=== PATIENT | male | born 1960 | race Caucasian/White ===

== ENCOUNTER 2017-10-08 17:38 | Inpatient (IN) ==
--- NOTE | 2017-10-08 18:51 | XR ---
EXAM DATE: 10/08/2017 6:45 PM EDT AGE/SEX: 57 years / Male INDICATIONS: . Chest pain. CLINICAL DATA: This is the patient's initial encounter. Patient reports that signs and symptoms have been present for 1 week and indicates a pain score of 6/10. MEDICAL/SURGICAL HISTORY: Diabetes. None. COMPARISON: [facility] [place], CHEST SINGLE AP, 10/27/2014. [facility], XR CHEST PA AND LAT, 01/21/2012. . FINDINGS: PA and lateral views of the chest demonstrate the lungs to be symmetrically aerated without evidence of mass, infiltrate or effusion. The cardiomediastinal contours are unremarkable. Moderate degenerati ve changes in the thoracic spine, stable. CONCLUSION: No acute cardiopulmonary disease. Electronically signed by: Collin Marquez MD 10/08/2017 6:49 PM EDT
[2017-10-08] MEDS ORDERED: Morphine Inj 4 MG/ML Vial IV.PUSH ONE (20:45)
--- NOTE | 2017-10-08 20:49 | ED ---
HPI General Chief complaint: Chest Pain Stated complaint: chest pain Time Seen by Provider: 10/08/17 20:38 History of Present Illness HPI narrative: This is a 57-year-old male with history of coronary artery disease with previous OK, diabetes, hypertension, hyperlipidemia, presents by private vehicle complaining of chest pain. He reports that for the past week he has been having intermittent left-sided chest pain which she describes as a pressure. He reports that he had to go to work all week long and so he was putting off being seen for but ever since this morning the pain has been constant and this is what prompted evaluation. He reports that the pain seems to be worse with exertion such as when he walking. He reports that it feels like the time that he had an OK in 2015. He denies any associated symptoms breath, diaphoresis, nausea, vomiting, cough, congestion, abdominal pain, lower extremity edema. Symptoms are moderate. Took a baby aspirin this morning. Primary care physician Dr. Moses. No other complaints. Related Data Home Medications Medication Instructions Recorded Confirmed aspirin [Aspirin Low Dose] 81 mg PO DAILY 10/08/17 10/08/17 carvedilol 3.125 mg PO BID 10/08/17 10/08/17 glipizide 20 mg PO BID 10/08/17 10/08/17 levothyroxine 100 mcg PO DAILY 10/08/17 10/08/17 lisinopril 5 mg PO DAILY 10/08/17 10/08/17 lovastatin 40 mg PO DAILY 10/08/17 10/08/17 metformin 1,000 mg PO BID 10/08/17 10/08/17 pazopanib 400 mg PO DAILY 10/08/17 10/08/17 Allergies Allergy/AdvReac Type Severity Reaction Status Date / Time No Known Allergies Allergy Uncoded 10/27/14 23:47 Review of Systems ROS: all other systems reviewed are negative [facility] Medical History Medical History Diabetes (Acute) Heart attack (Acute) High cholesterol (Acute) Hypertension (Acute) Renal cancer (Acute) Thyroid disease (Acute) Surgical History Surgical History History of nephrectomy (Acute) History of surgical removal of meniscus of knee (Acute) Hx of appendectomy (Acute) Stented coronary artery (Acute) Social History Social History Substance History: No History of Abuse Second Hand Smoke Exposure: No Smoking Status: Never smoker How Often Do You Have a Drink Containing Alcohol: Monthly or less Recent Travel in [facility] within the Last 8 Weeks: No Recent Out of Country Travel within the Last 8 Weeks: No Exam Narrative Exam Narrative: GENERAL: This is a well-developed well-nourished male no acute distress SKIN: Warm and dry. HEAD: Atraumatic. Normocephalic. EYES: Pupils equal and round. No scleral icterus. No injection or drainage. ENT: No nasal bleeding or discharge. Mucous membranes pink and moist. NECK: Trachea midline. No JVD. CARDIOVASCULAR: Regular rate and rhythm. No murmur appreciated. RESPIRATORY: No accessory muscle use. Clear to auscultation. Breath sounds equal bilaterally. GASTROINTESTINAL: Abdomen soft, non-tender, nondistended. Hepatic and splenic margins not palpable. MUSCULOSKELETAL: No obvious deformities. No clubbing. No cyanosis. No edema. NEUROLOGICAL: Awake and alert. No obvious cranial nerve deficits. Motor grossly within normal limits. Normal speech. PSYCHIATRIC: Appropriate mood and affect; insight and judgment normal. Course Initial Documented Vital Signs Temperature 98.9 F 10/08/17 17:48 Pulse Rate 90 10/08/17 17:48 Respiratory Rate 18 10/08/17 17:48 Blood Pressure 158/89 H 10/08/17 17:48 Pulse Oximetry 96 10/08/17 17:48 Last Documented Vital Signs Temperature 98.9 F 10/08/17 17:48 Pulse Rate 73 10/08/17 21:11 Respiratory Rate 18 10/08/17 21:11 Blood Pressure 99/62 L 10/08/17 21:11 Pulse Oximetry 96 10/08/17 21:11 Medical Decision Making [facility] Narrative Medical decision making narrative: The patient was placed on ECG monitoring pulse oximetry. A 12 EKG was obtained in triage revealing sinus rhythm with Q waves in the inferior leads, ST depression v3-v5. Lab work, chest x-ray ordered. The patient took 81 mg of aspirin earlier today, additional 243 mg aspirin ordered. The patient was given sublingual nitroglycerin, morphine. The patient's pain resolved after the second dose of nitroglycerin. 500 mm normal saline bolus was administered. Lab work reviewed, troponin was slightly elevated at 0.06. 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 Quan, no heparin at this time, he will be happy to consult. Discussed with Dr. Winslow is agreeable with admission. Medical Screen Exam Complete: Yes Emergency Medical Condition: Yes Differential Diagnosis Differential Diagnosis: Angina, acute coronary syndrome, aortic dissection, pericarditis, myocarditis, pneumothorax, costochondritis Lab Data Result diagrams: 10/08/17 20:55 10/08/17 20:55 Lab Results 10/08/17 10/08/17 10/08/17 Range/Units 20:55 20:55 20:55 WBC 7.5 (4.0-11.0) th/mm3 RBC 4.83 (4.50-5.90) mil/mm3 Hgb 14.7 (13.0-17.0) gm/dL Hct 44.2 (39.0-51.0) % MCV 91.5 (80.0-100.0) fL MCH 30.4 (27.0-34.0) pg MCHC 33.2 (32.0-36.0) % RDW 15.5 (11.6-17.2) % Plt Count 262 (150-450) th/mm3 MPV 8.6 (7.0-11.0) fL Neut % (Auto) 58.7 (16.0-70.0) % Lymph % (Auto) 26.1 (9.0-44.0) % [place] % (Auto) 11.6 H (0.0-8.0) % Eos % (Auto) 3.3 (0.0-4.0) % Baso % (Auto) 0.3 (0.0-2.0) % Neut # (Auto) 4.4 (1.8-7.7) th/mm3 Lymph # (Auto) 1.9 (1.0-4.8) th/mm3 [place] # (Auto) 0.9 (0.0-0.9) th/mm3 Eos # (Auto) 0.2 (0.0-0.4) th/mm3 Baso # (Auto) 0.0 (0.0-0.2) th/mm3 WBC Differential . Differential Comment Auto diff final PT 9.4 L (9.8-11.6) sec INR 0.9 Ratio APTT 23.4 L (24.3-30.1) sec Sodium 139 (136-145) meq/L Potassium 4.7 (3.5-5.1) meq/L Chloride 104 (98-107) meq/L Carbon Dioxide 28.1 (21.0-32.0) meq/L Anion Gap 7 (5-15) meq/L BUN 20 H (7-18) mg/dL Creatinine 1.39 H (0.60-1.30) mg/dL Estimated GFR 53 L (>89) mL/min Random Glucose 101 (74-106) mg/dL Calcium 8.4 L (8.5-10.1) mg/dL Magnesium (1.5-2.5) mg/dL Total Creatine Kinase (39-308) U/L CK-MB (CK-2) (0.5-3.6) ng/mL Troponin I 0.06 H (0.02-0.05) ng/mL 10/08/17 Range/Units 20:55 WBC (4.0-11.0) th/mm3 RBC (4.50-5.90) mil/mm3 Hgb (13.0-17.0) gm/dL Hct (39.0-51.0) % MCV (80.0-100.0) fL MCH (27.0-34.0) pg MCHC (32.0-36.0) % RDW (11.6-17.2) % Plt Count (150-450) th/mm3 MPV (7.0-11.0) fL Neut % (Auto) (16.0-70.0) % Lymph % (Auto) (9.0-44.0) % [place] % (Auto) (0.0-8.0) % Eos % (Auto) (0.0-4.0) % Baso % (Auto) (0.0-2.0) % Neut # (Auto) (1.8-7.7) th/mm3 Lymph # (Auto) (1.0-4.8) th/mm3 [place] # (Auto) (0.0-0.9) th/mm3 Eos # (Auto) (0.0-0.4) th/mm3 Baso # (Auto) (0.0-0.2) th/mm3 WBC Differential Differential Comment PT (9.8-11.6) sec INR Ratio APTT (24.3-30.1) sec Sodium (136-145) meq/L Potassium (3.5-5.1) meq/L Chloride (98-107) meq/L Carbon Dioxide (21.0-32.0) meq/L Anion Gap (5-15) meq/L BUN (7-18) mg/dL Creatinine (0.60-1.30) mg/dL Estimated GFR (>89) mL/min Random Glucose (74-106) mg/dL Calcium (8.5-10.1) mg/dL Magnesium 2.0 (1.5-2.5) mg/dL Total Creatine Kinase 191 (39-308) U/L CK-MB (CK-2) 5.0 H (0.5-3.6) ng/mL Troponin I (0.02-0.05) ng/mL Imaging Data Radiologist's impression: Chest X-Ray 10/08/17 17:53 CONCLUSION: No acute cardiopulmonary disease. Discharge Plan Discharge Disposition Patient Disposition: 30 Still Patient Discharge Condition Condition: Stable Discharge Details Diagnosis: Elevated troponin, Chest pain Physicians Team ED Provider: Roberto Brenner ED Midlevel Provider: Johnny Barrett Primary Care Provider: Daniel Moses Rxs /Orders / Referrals /Forms Prescriptions: No Action glipizide 10 mg Tablet 20 mg PO BID RF: 0 lovastatin 40 mg Tablet 40 mg PO DAILY RF: 0 aspirin [Aspirin Low Dose] 81 mg Tablet,Delayed Release (Dr/Ec) 81 mg PO DAILY RF: 0 carvedilol 3.125 mg Tablet 3.125 mg PO BID RF: 0 levothyroxine 100 mcg Tablet 100 mcg PO DAILY RF: 0 metformin 1,000 mg Tablet 1,000 mg PO BID RF: 0 lisinopril 5 mg Tablet 5 mg PO DAILY RF: 0 pazopanib 200 mg Tablet 400 mg PO DAILY RF: 0 Discharge Instructions Patient Printed Instructions: Chest Pain (ED) Discharge Interventions Interventions: Vital Signs Last Done: 10/08/17 20:48 Status ED Status: With Doctor
[2017-10-08] MEDS ORDERED: Sodium Chlor 0.9% Inj 500 ML IV.SIG STA (21:13)
[2017-10-08 21:24] LABS: Baso % (Auto) 0.3 % (0.0-2.0); Eos # (Auto) 0.2 th/mm3 (0.0-0.4); Eos % (Auto) 3.3 % (0.0-4.0); Hematocrit 44.2 % (39.0-51.0); Hemoglobin 14.7 gm/dL (13.0-17.0); Lymph # (Auto) 1.9 th/mm3 (1.0-4.8); Lymph % (Auto) 26.1 % (9.0-44.0); Mean Corpuscular HGB Conc 33.2 % (32.0-36.0); Mean Corpuscular Hemoglobin 30.4 pg (27.0-34.0); Mean Corpuscular Volume 91.5 fL (80.0-100.0); Mean Platelet Volume 8.6 fL (7.0-11.0); Mono # (Auto) 0.9 th/mm3 (0.0-0.9); Mono % (Auto) 11.6 % (0.0-8.0); Neut # (Auto) 4.4 th/mm3 (1.8-7.7); Neut % (Auto) 58.7 % (16.0-70.0); Platelet Count 262 th/mm3 (150-450); Red Blood Count 4.83 mil/mm3 (4.50-5.90); Red Cell Distribution Width 15.5 % (11.6-17.2); White Blood Count 7.5 th/mm3 (4.0-11.0)
[2017-10-08 21:41] LABS: Calcium 8.4 mg/dL (8.5-10.1); Carbon Dioxide 28.1 meq/L (21.0-32.0); Potassium 4.7 meq/L (3.5-5.1)
[2017-10-08 21:44] LABS: Creatine Kinase 191 U/L (39-308)
[2017-10-08 21:45] LABS: Troponin I 0.06 ng/mL (0.02-0.05)
[2017-10-08 22:09] LABS: Activated Partial Thrombo Time 23.4 sec (24.3-30.1); INR 0.9 Ratio; Prothrombin Time 9.4 sec (9.8-11.6)
[2017-10-08] MEDS ORDERED: Heparin 10,000 UNITS/10 ML Vial (for IV use) IV.PUSH STA (22:38)
[2017-10-08] MEDS: Heparin Drip 25,000 UNIT/250 ML BAG IV.CONT PRN (23:01)
[2017-10-09] MEDS ORDERED: Morphine Sulfate Inj 2 MG/ML Vial IV.PUSH PRN (00:29)
[2017-10-09] MEDS ORDERED: Dextrose 50% in Water 50 ML Vial IV.PUSH PRN (00:35)
--- NOTE | 2017-10-09 00:38 | P.HP ---
History of Present Illness Service: [facility] Primary Care Physician: Daniel Moses MD History of Present Illness: 57-year-old male with past medical history significant for diabetes, coronary artery disease, hypertension, hyperlipidemia, stage IV renal cell cancer and hypothyroidism presents to the emergency department for evaluation of chest pain. The patient reports that his pain has been intermittent for the past week. He states it was worse yesterday and he described it as a nonradiating pressure in the center and left side of his chest. He endorses accompanying nausea, shortness of breath and worsening dyspnea on exertion. He denies any fever/chills. No lateralizing signs/symptoms. Review of Systems All other systems reviewed negative except as stated in HPI [facility] - History History Provided By: Patient, Family Member - Medical History Medical History: Medical History (Last Updated 10/08/17 @ 20:47 by Cristina Rosenthal) Diabetes Heart attack High cholesterol Hypertension Renal cancer Thyroid disease - Surgical History Surgical History: Surgical History (Last Updated 10/08/17 @ 20:47 by Cristina Rosenthal) History of nephrectomy History of surgical removal of meniscus of knee Hx of appendectomy Stented coronary artery - Family History Family History: Family History (Last Updated 10/09/17 @ 00:28 by Shelia Winslow MD) Other Diabetes mellitus - Tobacco History Second Hand Smoke Exposure: No Smoking Status: Never smoker - Alcohol History How Often Do You Have a Drink Containing Alcohol: Monthly or less - Substance Use History Substance History: No History of Abuse - Travel History Recent Travel in the [place] Within the Last 8 Weeks: No Recent Travel Out of the Country Within the Last 8 Weeks: No - Immunization History Tetanus Immunization: Unsure Hx Influenza Vaccine This Season: No Medications and Allergies Active Medications: Active Medications Aspirin (Ecotrin) 81 mg PO DAILY [facility] Carvedilol (Coreg) 3.125 mg PO BID [facility] Heparin Sodium/Dextrose (Heparin/D5w 25,000 U/250 Ml) 25,000 unit in 250 mls @ 0 mls/hr IV.CONT TITRATE PRN; Protocol PRN Reason: Per Protocol Last Titration: 10/08/17 23:05 Dose: Infused Lisinopril (Prinivil) 5 mg PO DAILY [facility] Nitroglycerin (Nitro-Bid 2% Oint) 0.5 inch TOPICAL Q6HR JS Last Admin: 10/08/17 23:00 Dose: 0.5 inch Sodium Chloride (Ns Flush) 2 ml IV.FLUSH UNSCH PRN PRN Reason: FLUSH AFTER USING IV ACCESS Allergies Allergy/AdvReac Type Severity Reaction Status Date / Time No Known Allergies Allergy Uncoded 10/27/14 23:47 Home Medications Medication Instructions Recorded Confirmed Type aspirin [Aspirin Low Dose] 81 mg PO DAILY 10/08/17 10/08/17 History carvedilol 3.125 mg PO BID 10/08/17 10/08/17 History glipizide 20 mg PO BID 10/08/17 10/08/17 History levothyroxine 100 mcg PO DAILY 10/08/17 10/08/17 History lisinopril 5 mg PO DAILY 10/08/17 10/08/17 History lovastatin 40 mg PO DAILY 10/08/17 10/08/17 History metformin 1,000 mg PO BID 10/08/17 10/08/17 History pazopanib 400 mg PO DAILY 10/08/17 10/08/17 History Exam Vital signs: Vital Signs 10/08/17 17:48 10/08/17 20:45 10/08/17 20:48 Temperature 98.9 F Pulse Rate 90 71 76 Respiratory Rate 18 20 Blood Pressure 158/89 H 177/90 H Pulse Oximetry 96 97 10/08/17 21:06 10/08/17 21:11 10/08/17 23:05 Temperature Pulse Rate 80 73 70 Respiratory Rate 16 18 16 Blood Pressure 126/69 99/62 L 146/79 H Pulse Oximetry 93 L 96 95 10/09/17 00:03 Temperature Pulse Rate 64 Respiratory Rate 16 Blood Pressure 149/79 H Pulse Oximetry 98 Intake & Output 10/08/17 10/08/17 10/09/17 06:59 18:59 06:59 Intake Total 750 / 750 Balance 750 / 750 Weight 97.522 kg Intake: IV 750 / 750 Heparin/D5W 25,000 U/250 mL 25, 250 / 250 000 unit In 250 ml @ Per Protocol IV.CONT TITRATE PRN Rx #:[id number] NS Inj 500 ML @ Wide Open IV. 500 / 500 SIG BOLUS STA Rx#:[id number] Narrative: Gen.: No acute distress Head: Normocephalic. Atraumatic. EENT: Pupils equal round and reactive to light. Nose without drainage. Airway intact. Throat without injection. Cardiovascular: Regular rate and rhythm. No murmurs, rubs or gallops. Respiratory: Lungs clear to auscultation bilaterally. No wheezes or rhonchi. Abdomen: Soft, nontender, nondistended. No peritoneal signs. Musculoskeletal: No gross deformities. No edema. Skin: No obvious rashes or erythema. Neuro: Sensory and motor grossly intact. Cranial nerves II through XII grossly intact. Results - Labs CBC & Chem 7: 10/08/17 20:55 10/08/17 20:55 Labs: Laboratory Results - last 24 hr 10/08/17 10/08/17 10/08/17 20:55 20:55 20:55 WBC 7.5 RBC 4.83 Hgb 14.7 Hct 44.2 MCV 91.5 MCH 30.4 MCHC 33.2 RDW 15.5 Plt Count 262 MPV 8.6 Neut % (Auto) 58.7 Lymph % (Auto) 26.1 [place] % (Auto) 11.6 H Eos % (Auto) 3.3 Baso % (Auto) 0.3 Neut # (Auto) 4.4 Lymph # (Auto) 1.9 [place] # (Auto) 0.9 Eos # (Auto) 0.2 Baso # (Auto) 0.0 WBC Differential . Differential Comment Auto diff final PT 9.4 L INR 0.9 APTT 23.4 L Sodium 139 Potassium 4.7 Chloride 104 Carbon Dioxide 28.1 Anion Gap 7 BUN 20 H Creatinine 1.39 H Estimated GFR 53 L Random Glucose 101 Calcium 8.4 L Magnesium Total Creatine Kinase CK-MB (CK-2) Troponin I 0.06 H 10/08/17 20:55 WBC RBC Hgb Hct MCV MCH MCHC RDW Plt Count MPV Neut % (Auto) Lymph % (Auto) [place] % (Auto) Eos % (Auto) Baso % (Auto) Neut # (Auto) Lymph # (Auto) [place] # (Auto) Eos # (Auto) Baso # (Auto) WBC Differential Differential Comment PT INR APTT Sodium Potassium Chloride Carbon Dioxide Anion Gap BUN Creatinine Estimated GFR Random Glucose Calcium Magnesium 2.0 Total Creatine Kinase 191 CK-MB (CK-2) 5.0 H Troponin I - Imaging Impressions Chest X-Ray 10/08/17 17:53 CONCLUSION: No acute cardiopulmonary disease. Caprini VTE Risk Assessment Caprini VTE Risk Assessment: Moderate/High Risk (score >= 2) Caprini Risk Assessment Model: Point Value = 1 Point Value = 2 Point Value = 3 Point Value = 5 Age 41-60 Minor surgery BMI > 25 kg/m2 Swollen legs Varicose veins or History of unexplained or recurrent spontaneous Oral contraceptives or hormone replacement Sepsis (< 1 month) Serious lung disease, including pneumonia (< 1 month) Abnormal pulmonary function Acute myocardial infarction Congestive heart failure (< 1 month) History of inflammatory bowel disease Medical patient at bed rest Age 61-74 Arthroscopic surgery Major open surgery (> 45 min) Laparoscopic surgery (> 45 min) Malignancy Confined to bed (> 72 hours) Immobilizing plaster cast Central venous access Age >= 75 History of VTE Family history of VTE Factor V Leiden Prothrombin [id number] Lupus anticoagulant Anticardiolipin antibodies Elevated serum homocysteine Heparin-induced thrombocytopenia Other congenital or acquired thrombophilia Stroke (< 1 month) Elective arthroplasty Hip, pelvis, or leg fracture Acute spinal cord injury (< 1 month) Prophylaxis Regimen: Total Risk Factor Score Risk Level Prophylaxis Regimen 0-1 Low Early ambulation 2 Moderate Order ONE of the following: *Sequential Compression Device (SCD) *Heparin 5000 units SQ BID 3-4 Higher Order ONE of the following medications: *Heparin 5000 units SQ TID *Enoxaparin/Lovenox 40 mg SQ daily (WT < 150 kg, CrCl > 30 mL/min) *Enoxaparin/Lovenox 30 mg SQ daily (WT < 150 kg, CrCl > 10-29 mL/min) *Enoxaparin/Lovenox 30 mg SQ BID (WT < 150 kg, CrCl > 30 mL/min) AND/OR *Sequential Compression Device (SCD) 5 or more Highest Order ONE of the following medications: *Heparin 5000 units SQ TID (Preferred with Epidurals) *Enoxaparin/Lovenox 40 mg SQ daily (WT < 150 kg, CrCl > 30 mL/min) *Enoxaparin/Lovenox 30 mg SQ daily (WT < 150 kg, CrCl > 10-29 mL/min) *Enoxaparin/Lovenox 30 mg SQ BID (WT < 150 kg, CrCl > 30 mL/min) AND *Sequential Compression Device (SCD) Assessment and Plan - Plan Assessment/plan: 1. 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 Quan N.p.o. ACS rule out pending; serial troponins/EKGs Continue aspirin 2. Chronic kidney disease Creatinine 1.39 Patient's elevated troponin may be secondary to renal function Monitor 3. Diabetes mellitus Holding home metformin/glipizide Sliding-scale insulin Monitor blood glucose 4. Hypertension/hyperlipidemia Continue home medications 5. Renal cell carcinoma Continue daily Pazopanib FEN N.p.o. Electrolytes: Monitor and replete as needed Heparin drip
[2017-10-09 01:35] LABS: Activated Partial Thrombo Time 71.1 sec (24.3-30.1); Prothrombin Time 10.2 sec (9.8-11.6)
[2017-10-09] MEDS: Heparin Drip 25,000 UNIT/250 ML BAG IV.CONT PRN ×2 (03:20→21:53)
[2017-10-09 04:36] LABS: Troponin I 0.05 ng/mL (0.02-0.05)
[2017-10-09] MEDS: Insulin NovoLOG Aspart Correctional Sugar Inj SQ SCH ×5 (05:06→21:51)
[2017-10-09] MEDS: Levothyroxine 100 MCG Tablet PO SCH (06:28)
[2017-10-09] MEDS: Lisinopril 5 MG Tablet PO SCH (08:32)
[2017-10-09] MEDS ORDERED: PAZOPANIB PO SCH (09:00)
[2017-10-09] MEDS ORDERED: Lisinopril 5 MG Tablet PO SCH (09:00)
--- NOTE | 2017-10-09 09:39 | P.PN ---
Subjective Interval history: Follow-up for chest pain. Patient reports no current chest pain but did have mild episodes of chest pain overnight. He localizes his chest pain to the left upper chest without radiation, described as moderate pressure, associated with shortness of breath and some nausea. He denies any further episodes of vomiting overnight. Denies any fever/chills, palpitations, or abdominal complaints. Physical Exam Vital signs: Vital Signs 10/08/17 17:48 10/08/17 20:45 10/08/17 20:48 Temperature 98.9 F Pulse Rate 90 71 76 Respiratory Rate 18 20 Blood Pressure 158/89 H 177/90 H Pulse Oximetry 96 97 10/08/17 21:06 10/08/17 21:11 10/08/17 23:05 Temperature Pulse Rate 80 73 70 Respiratory Rate 16 18 16 Blood Pressure 126/69 99/62 L 146/79 H Pulse Oximetry 93 L 96 95 10/09/17 00:03 10/09/17 01:18 10/09/17 04:00 Temperature 97.3 F L 98.1 F Pulse Rate 64 68 63 Respiratory Rate 16 16 16 Blood Pressure 149/79 H 150/89 H 138/82 Pulse Oximetry 98 95 96 10/09/17 07:18 10/09/17 08:00 10/09/17 09:25 Temperature 97.4 F L Pulse Rate 63 69 61 Respiratory Rate 16 Blood Pressure 144/79 H Pulse Oximetry 97 Intake & Output 10/08/17 10/09/17 10/09/17 18:59 06:59 18:59 Intake Total 750 / 750 Balance 750 / 750 Weight 97.522 kg 97.522 kg Intake: IV 750 / 750 Heparin/D5W 25,000 U/250 mL 25, 250 / 250 000 unit In 250 ml @ Per Protocol IV.CONT TITRATE PRN Rx #:[id number] NS Inj 500 ML @ Wide Open IV. 500 / 500 SIG BOLUS STA Rx#:[id number] Other: Date of Last Bowel Movement 10/08/17 Weight On Admission 97.522 kg Narrative: GENERAL: Well-nourished, well-developed middle-aged male patient in [facility]. SKIN: Warm and dry. No rash. HEENT: Normocephalic. Atraumatic. Pupils equal and round. Mucous membranes pink and moist. CARDIOVASCULAR: Regular rate and rhythm. No murmur appreciated. RESPIRATORY: No accessory muscle use. Clear to auscultation. Breath sounds equal bilaterally. GASTROINTESTINAL: Abdomen soft, non-tender, nondistended. Normoactive bowel sounds x4. MUSCULOSKELETAL: No obvious deformities. Extremities without clubbing, cyanosis , or edema. NEUROLOGICAL: Awake and alert. No obvious cranial nerve deficits. Motor grossly within normal limits. Moving all extremities spontaneously. Normal speech. PSYCHIATRIC: Appropriate mood and affect; insight and judgment normal. Results - Labs CBC & Chem 7: 10/08/17 20:55 10/08/17 20:55 Laboratory Results - last 24 hr 10/08/17 10/08/17 10/08/17 20:55 20:55 20:55 WBC 7.5 RBC 4.83 Hgb 14.7 Hct 44.2 MCV 91.5 MCH 30.4 MCHC 33.2 RDW 15.5 Plt Count 262 MPV 8.6 Neut % (Auto) 58.7 Lymph % (Auto) 26.1 [place] % (Auto) 11.6 H Eos % (Auto) 3.3 Baso % (Auto) 0.3 Neut # (Auto) 4.4 Lymph # (Auto) 1.9 [place] # (Auto) 0.9 Eos # (Auto) 0.2 Baso # (Auto) 0.0 WBC Differential . Differential Comment Auto diff final PT 9.4 L INR 0.9 APTT 23.4 L Sodium 139 Potassium 4.7 Chloride 104 Carbon Dioxide 28.1 Anion Gap 7 BUN 20 H Creatinine 1.39 H Estimated GFR 53 L POC Glucose Random Glucose 101 Calcium 8.4 L Magnesium Total Creatine Kinase CK-MB (CK-2) Troponin I 0.06 H 10/08/17 10/09/17 10/09/17 20:55 01:07 03:24 WBC RBC Hgb Hct MCV MCH MCHC RDW Plt Count MPV Neut % (Auto) Lymph % (Auto) [place] % (Auto) Eos % (Auto) Baso % (Auto) Neut # (Auto) Lymph # (Auto) [place] # (Auto) Eos # (Auto) Baso # (Auto) WBC Differential Differential Comment PT 10.2 INR 1.0 APTT 71.1 H D Sodium Potassium Chloride Carbon Dioxide Anion Gap BUN Creatinine Estimated GFR POC Glucose Random Glucose Calcium Magnesium 2.0 Total Creatine Kinase 191 115 CK-MB (CK-2) 5.0 H Troponin I 0.05 10/09/17 07:41 WBC RBC Hgb Hct MCV MCH MCHC RDW Plt Count MPV Neut % (Auto) Lymph % (Auto) [place] % (Auto) Eos % (Auto) Baso % (Auto) Neut # (Auto) Lymph # (Auto) [place] # (Auto) Eos # (Auto) Baso # (Auto) WBC Differential Differential Comment PT INR APTT Sodium Potassium Chloride Carbon Dioxide Anion Gap BUN Creatinine Estimated GFR POC Glucose 144 H Random Glucose Calcium Magnesium Total Creatine Kinase CK-MB (CK-2) Troponin I - Imaging Impressions Chest X-Ray 10/08/17 17:53 CONCLUSION: No acute cardiopulmonary disease. Assessment and Plan - Plan 57-year-old male with past medical history significant for diabetes, coronary artery disease s/p stents x2, hypertension, hyperlipidemia, stage IV renal cell cancer s/p nephrectomy, and hypothyroidism presents with a 1 week history of intermittent chest pain. Chest pain/elevated troponin/abnormal EKG: with hx of CAD s/p stents x2. -Trend cardiac enzymes, 0.06, 0.05, checking 3rd set -EKG shows ST depression in V3 through V5, personally reviewed -Consulted patient's community marketing manager, Dr. Quan, appreciate recommendations -Continue Heparin drip as ordered by Dr. Quan -Keep N.p.o. -Continue aspirin, nitro, BB, DEVAUGHN, statin, morphine prn, O2 prn Chronic kidney disease: Creatinine 1.39 -Patient's elevated troponin may be secondary to renal function -Avoid nephrotoxins -Monitor renal function Diabetes mellitus: chronic -Holding home metformin/glipizide -Sliding-scale insulin -Monitor blood glucose Hypertension/hyperlipidemia: chronic -Continue patient's coreg, lisinopril, statin -Monitor BP, adjust antihypertensives as needed Renal cell carcinoma: chronic. S/p left nephrectomy -Continue patient's daily Pazopanib DVT Prophylaxis: on Heparin drip Discharge Planning: Await further evaluation from Dr. Quan.
[2017-10-09] MEDS ORDERED: Tirofiban Bolus 2,450 MCG in Syringe/Bag 1 EACH IV.PUSH ONE (11:00)
--- NOTE | 2017-10-09 11:37 | MB ---
cc: Meño Quan MD DATE: 10/09/2017 REASON FOR CONSULTATION: Unstable angina. HISTORY OF PRESENT ILLNESS: The patient is a 57-year-old white male with a history of coronary artery disease, diabetes, hyperlipidemia, hypertension, renal carcinoma, who was in his usual state of health up until a week ago when he began to experience intermittent episodes of substernal chest pressure associated with shortness of breath without nausea or diaphoresis. Initially, the chest discomfort would occur with some exertion. In the last couple of days, he has had some episodes occurring at rest. The patient states he had chest discomfort most of the day yesterday, so he finally decided to come to the emergency department for further evaluation and treatment. He denies dizziness, syncope, near syncope, palpitations, pedal edema, paroxysmal nocturnal dyspnea, orthopnea. The patient reports compliance with his medications. PAST MEDICAL HISTORY: 1. Coronary artery disease, status post inferior ST-elevation myocardial infarction 10/28/2014, subsequently undergoing stent of a totally occluded mid right coronary artery using a 3.5 mm Resolute stent. 70% disease in the proximal right coronary was also treated with a 3.5 mm Resolute stent. Cardiac catheterization at that time showed ejection fraction of 65%, 10% distal left main disease, 40% proximal LAD stenosis, 40% proximal diagonal lesion, 50% proximal ramus intermedius, 80%-90% stenosis at the ostium of a very small third obtuse marginal. 2. Diabetes. 3. Hyperlipidemia. 4. Hypertension. 5. Renal carcinoma, status post left nephrectomy and adrenalectomy. CARDIAC MEDICATIONS AT HOME: 1. Aspirin 81 mg daily. 2. Carvedilol 3.125 mg b.i.d. 3. Lisinopril 5 mg daily. 4. Lovastatin 40 mg at bedtime. ALLERGIES: NO KNOWN DRUG ALLERGIES. FAMILY HISTORY: Noncontributory. SOCIAL HISTORY: The patient has never smoked cigarettes. He denies alcohol abuse. REVIEW OF SYSTEMS: As in the history of present illness, otherwise negative or noncontributory. He also denies headache, abdominal pain, melena, dyspepsia, bright red blood per rectum. PHYSICAL EXAMINATION: VITAL SIGNS: Blood pressure 144/79 with a pulse of 70, respirations 16. GENERAL: He is a well-developed, well-nourished white male, in no acute distress. NECK: Jugular venous pressure is normal. Carotid pulses are 2+ bilaterally and without bruits. CHEST: Reveals unlabored respiratory effort with clear lungs kohli. CARDIAC: He has a regular rhythm and rate without S3, S4, or murmur. ABDOMEN: He has a soft, nontender abdomen. Bowel sounds are present. There is no definite hepatosplenomegaly. EXTREMITIES: Reveals no clubbing, cyanosis or edema. Peripheral pulses are normal throughout. DIAGNOSTIC DATA: EKG from 10/08/2017 at 6:01 p.m. shows sinus rhythm, possible inferior infarct, age undetermined, anterolateral ST depression, consider ischemia. Chest x-ray shows no acute disease. LABORATORY DATA: Includes normal CBC. INR 1.0. BUN 20, creatinine 1.39, potassium 4.7. CK 191, CK-MB 5.0, troponin 0.06. IMPRESSION: Symptoms most consistent with unstable angina in this 57-year-old white male with a history of coronary artery disease, diabetes, hypertension, hyperlipidemia. Cardiac enzymes are overall negative for myocardial infarction. His EKG does show new anterolateral ST segment depression. At this time, he is angina free. There has been no evidence for congestive heart failure or arrhythmias so far. Because of the unstable nature of his symptoms, he has been recommended cardiac catheterization with probable percutaneous coronary intervention, the risks of which have been explained to him including, but not limited to, , myocardial infarction, stroke, arrhythmia, bleeding, infection, and renal failure. He agrees to proceed. RECOMMENDATIONS: 1. Continue his usual home cardiac medications. 2. Continue heparin drip as started here in the emergency department. 3. Will also add Aggrastat. 4. Cardiac catheterization Wednesday morning, sooner if he develops recurrent symptoms refractory to medical therapy. MD FIGUEROA Vicente/vincent , 09:49 AM , 09:58 AM JORDAN
[2017-10-09 11:57] LABS: Hematocrit 42.7 % (39.0-51.0); Hemoglobin 13.9 gm/dL (13.0-17.0); Mean Corpuscular HGB Conc 32.6 % (32.0-36.0); Mean Corpuscular Hemoglobin 30.7 pg (27.0-34.0); Mean Corpuscular Volume 94.2 fL (80.0-100.0); Mean Platelet Volume 8.6 fL (7.0-11.0); Platelet Count 202 th/mm3 (150-450); Red Blood Count 4.53 mil/mm3 (4.50-5.90); White Blood Count 5.4 th/mm3 (4.0-11.0)
[2017-10-09 12:34] LABS: Troponin I 0.05 ng/mL (0.02-0.05)
[2017-10-09] MEDS: Tirofiban Inj 12,500 MCG/250 ML PLAST..BAG IV.CONT SCH (13:05)
--- NOTE | 2017-10-09 13:55 | ECG ---
Date Performed: 10/08/2017 Time Performed: 18:01:35 PTAGE: 57 years EKG: Sinus rhythm POSSIBLE INFERIOR MYOCARDIAL INFARCTION BORDERLINE ECG Compared to PREVIOUS TRACING precordial ST depressions are new, consider ischemia PREVIOUS TRACIN10/28/14 DOCTOR: Josué Roberts Interpretating Date/Time 10/09/2017 13:53:49
--- NOTE | 2017-10-09 13:55 | ECG ---
Date Performed: 10/09/2017 Time Performed: 03:19:23 PTAGE: 57 years EKG: Sinus rhythm POSSIBLE INFERIOR MYOCARDIAL INFARCTION ABNORMAL ECG Compared to PREVIOUS TRACING ST depressions are more prominent, consider ischemia Clinical Correlati on Recommended PREVIOUS TRACIN10/08/17 DOCTOR: Josué Roberts Interpretating Date/Time 10/09/2017 13:54:29
--- NOTE | 2017-10-09 13:55 | ECG ---
Date Performed: 10/08/2017 Time Performed: 20:58:31 PTAGE: 57 years EKG: Sinus rhythm MODERATE ST DEPRESSION ABNORMAL ECG Since the PREVIOUS TRACING , no significant change noted PREVIOUS TRACIN10/28/2014 06.46 DOCTOR: Josué Roberts Interpretating Date/Time 10/09/2017 13:53:57
[2017-10-10 04:34] LABS: Baso % (Auto) 0.5 % (0.0-2.0); Eos # (Auto) 0.3 th/mm3 (0.0-0.4); Eos % (Auto) 4.6 % (0.0-4.0); Hematocrit 39.7 % (39.0-51.0); Hemoglobin 13.2 gm/dL (13.0-17.0); Lymph # (Auto) 1.6 th/mm3 (1.0-4.8); Lymph % (Auto) 25.8 % (9.0-44.0); Mean Corpuscular HGB Conc 33.2 % (32.0-36.0); Mean Corpuscular Hemoglobin 30.4 pg (27.0-34.0); Mean Corpuscular Volume 91.7 fL (80.0-100.0); Mean Platelet Volume 9.4 fL (7.0-11.0); Mono # (Auto) 0.6 th/mm3 (0.0-0.9); Mono % (Auto) 9.4 % (0.0-8.0); Neut # (Auto) 3.8 th/mm3 (1.8-7.7); Neut % (Auto) 59.7 % (16.0-70.0); Platelet Count 278 th/mm3 (150-450); Red Blood Count 4.33 mil/mm3 (4.50-5.90); Red Cell Distribution Width 15.4 % (11.6-17.2); White Blood Count 6.3 th/mm3 (4.0-11.0)
[2017-10-10] MEDS: Insulin NovoLOG Aspart Correctional Sugar Inj SQ SCH ×4 (04:48→21:48)
[2017-10-10 05:12] LABS: Carbon Dioxide 24.1 meq/L (21.0-32.0); Potassium 4.5 meq/L (3.5-5.1)
[2017-10-10] MEDS: Levothyroxine 100 MCG Tablet PO SCH (07:48)
[2017-10-10] MEDS: Tirofiban Inj 12,500 MCG/250 ML PLAST..BAG IV.CONT SCH (08:14)
[2017-10-10] MEDS: Lisinopril 5 MG Tablet PO SCH (08:43)
--- NOTE | 2017-10-10 11:02 | P.PNCA ---
Subjective Interval history: No further CP. No dyspnea, dizziness, palpitations, PND. Slept fairly well. Physical Exam Vital signs: Vital Signs 10/09/17 12:00 10/09/17 14:00 10/09/17 15:00 Temperature 98.2 F Pulse Rate 81 80 76 Respiratory Rate 18 Blood Pressure 135/76 Pulse Oximetry 97 10/09/17 16:00 10/09/17 17:00 10/09/17 18:00 Temperature 98.1 F Pulse Rate 73 94 H 83 Respiratory Rate 16 Blood Pressure 125/76 Pulse Oximetry 97 10/09/17 19:00 10/09/17 20:00 10/09/17 21:00 Temperature 98.2 F Pulse Rate 78 82 90 Respiratory Rate 16 Blood Pressure 113/69 Pulse Oximetry 96 10/09/17 22:00 10/09/17 23:00 10/10/17 00:00 Temperature 98.2 F Pulse Rate 76 78 74 Respiratory Rate 16 Blood Pressure 122/72 Pulse Oximetry 96 10/10/17 01:00 10/10/17 02:00 10/10/17 04:00 Temperature 98.6 F Pulse Rate 72 72 90 Respiratory Rate 16 Blood Pressure 129/72 Pulse Oximetry 96 10/10/17 05:00 10/10/17 06:00 10/10/17 07:00 Temperature Pulse Rate 63 65 62 Respiratory Rate Blood Pressure Pulse Oximetry Intake & Output 10/09/17 10/10/17 10/10/17 18:59 06:59 18:59 Intake Total 620 / 620 1220 / 1220 Output Total 850 / 850 780 / 780 Balance -230 / -230 440 / 440 Weight 96.5 kg Intake: IV 500 / 500 Heparin/D5W 25,000 U/250 mL 25, 250 / 250 000 unit In 250 ml @ Per Protocol IV.CONT TITRATE PRN Rx #:[id number] Aggrastat Inj 12,500 mcg In 250 250 / 250 ml @ Per Protocol IV.CONT .Q0M JS Rx#:[id number] Oral 620 / 620 720 / 720 Output: Urine 850 / 850 780 / 780 Other: Date of Last Bowel Movement 10/08/17 10/08/17 - Constitutional no acute distress - Routine Neck Exam Absent: JVD - Routine Respiratory Exam Present: CTA bilaterally - Routine Cardiovascular Exam Present: RRR, S1, S2. Absent: murmur, gallop - Routine Abdominal Exam Present: soft, normoactive bowel sounds. Absent: tenderness, organomegaly - Routine Extremities Exam Absent: cyanosis, clubbing, edema Assessment and Plan - Assessment (1) Unstable angina Code(s): I20.0 - Unstable angina Status: Acute Plan: Stable overnight on IV hep, IV tirofiban, beta roselyn, aspirin, nitrates. No further angina. For cath tomorrow. (2) Hypertension Code(s): I10 - Essential (primary) hypertension Status: Chronic Plan: Stable. Normotensive this morning. (3) Hyperlipidemia Code(s): E78.5 - Hyperlipidemia, unspecified Status: Chronic Plan: Continues on statin therapy. Check lipid profile post cath. - Plan Code Status: full code Discussed Condition With: patient and (2) Hypertension Qualifiers: Hypertension type: essential hypertension Qualified Code(s): I10 - Essential (primary) hypertension (3) Hyperlipidemia Qualifiers: Hyperlipidemia type: mixed hyperlipidemia Qualified Code(s): E78.2 - Mixed hyperlipidemia
[2017-10-10] MEDS ORDERED: fentaNYL Citrate Inj 100 MCG/2 ML Ampul IV.PUSH SCH (11:15)
--- NOTE | 2017-10-10 12:42 | P.PN ---
Subjective Interval history: Follow-up unstable angina October 10, 2017-patient seen and examined, denies any chest pain or shortness of breath. by the bedside. Physical Exam Vital signs: Vital Signs 10/09/17 14:00 10/09/17 15:00 10/09/17 16:00 Temperature 98.1 F Pulse Rate 80 76 73 Respiratory Rate 16 Blood Pressure 125/76 Pulse Oximetry 97 10/09/17 17:00 10/09/17 18:00 10/09/17 19:00 Temperature Pulse Rate 94 H 83 78 Respiratory Rate Blood Pressure Pulse Oximetry 10/09/17 20:00 10/09/17 21:00 10/09/17 22:00 Temperature 98.2 F Pulse Rate 82 90 76 Respiratory Rate 16 Blood Pressure 113/69 Pulse Oximetry 96 10/09/17 23:00 10/10/17 00:00 10/10/17 01:00 Temperature 98.2 F Pulse Rate 78 74 72 Respiratory Rate 16 Blood Pressure 122/72 Pulse Oximetry 96 10/10/17 02:00 10/10/17 04:00 10/10/17 05:00 Temperature 98.6 F Pulse Rate 72 90 63 Respiratory Rate 16 Blood Pressure 129/72 Pulse Oximetry 96 10/10/17 06:00 10/10/17 07:00 Temperature Pulse Rate 65 62 Respiratory Rate Blood Pressure Pulse Oximetry Intake & Output 10/09/17 10/10/17 10/10/17 18:59 06:59 18:59 Intake Total 620 / 620 1220 / 1220 Output Total 850 / 850 780 / 780 Balance -230 / -230 440 / 440 Weight 96.5 kg Intake: IV 500 / 500 Heparin/D5W 25,000 U/250 mL 25, 250 / 250 000 unit In 250 ml @ Per Protocol IV.CONT TITRATE PRN Rx #:[id number] Aggrastat Inj 12,500 mcg In 250 250 / 250 ml @ Per Protocol IV.CONT .Q0M JS Rx#:[id number] Oral 620 / 620 720 / 720 Output: Urine 850 / 850 780 / 780 Other: Date of Last Bowel Movement 10/08/17 10/08/17 Narrative: GENERAL: NAD. SKIN: Warm and dry. No rash. HEENT: Normocephalic. Atraumatic. Pupils equal and round. Mucous membranes pink and moist. CARDIOVASCULAR: Regular rate and rhythm. No murmur appreciated. RESPIRATORY: No accessory muscle use. Clear to auscultation. Breath sounds equal bilaterally. GASTROINTESTINAL: Abdomen soft, non-tender, nondistended. Normoactive bowel sounds x4. MUSCULOSKELETAL: No obvious deformities. Extremities without clubbing, cyanosis , or edema. NEUROLOGICAL: Awake and alert. No obvious cranial nerve deficits. Motor grossly within normal limits. Moving all extremities spontaneously. Normal speech. PSYCHIATRIC: Appropriate mood and affect; insight and judgment normal. Results - Labs CBC & Chem 7: 10/10/17 03:37 10/10/17 03:37 Laboratory Results - last 24 hr 10/09/17 10/09/17 10/09/17 16:55 17:35 21:46 WBC RBC Hgb Hct MCV MCH MCHC RDW Plt Count MPV Neut % (Auto) Lymph % (Auto) [place] % (Auto) Eos % (Auto) Baso % (Auto) Neut # (Auto) Lymph # (Auto) [place] # (Auto) Eos # (Auto) Baso # (Auto) WBC Differential Differential Comment APTT 44.8 H D Sodium Potassium Chloride Carbon Dioxide Anion Gap BUN Creatinine Estimated GFR POC Glucose 157 H 169 H Random Glucose Calcium 10/09/17 10/10/17 10/10/17 23:00 03:37 03:37 WBC 6.3 RBC 4.33 L Hgb 13.2 Hct 39.7 MCV 91.7 MCH 30.4 MCHC 33.2 RDW 15.4 Plt Count 278 D MPV 9.4 Neut % (Auto) 59.7 Lymph % (Auto) 25.8 [place] % (Auto) 9.4 H Eos % (Auto) 4.6 H Baso % (Auto) 0.5 Neut # (Auto) 3.8 Lymph # (Auto) 1.6 [place] # (Auto) 0.6 Eos # (Auto) 0.3 Baso # (Auto) 0.0 WBC Differential . Differential Comment Auto diff final APTT 44.7 H Sodium 140 Potassium 4.5 Chloride 105 Carbon Dioxide 24.1 Anion Gap 11 BUN 19 H Creatinine 1.20 Estimated GFR 62 L POC Glucose Random Glucose 150 H Calcium 8.0 L 10/10/17 10/10/17 03:37 08:39 WBC RBC Hgb Hct MCV MCH MCHC RDW Plt Count MPV Neut % (Auto) Lymph % (Auto) [place] % (Auto) Eos % (Auto) Baso % (Auto) Neut # (Auto) Lymph # (Auto) [place] # (Auto) Eos # (Auto) Baso # (Auto) WBC Differential Differential Comment APTT 48.0 H Sodium Potassium Chloride Carbon Dioxide Anion Gap BUN Creatinine Estimated GFR POC Glucose 151 H Random Glucose Calcium Assessment and Plan - Plan 57-year-old man with Unstable angina -Continue Heparin drip, Aggrastat -Continue aspirin, nitro, BB, DEVAUGHN, statin, morphine prn, O2 prn -Plan for left heart catheterization tomorrow October 11, 2017 -Appreciate input from cardiology Chronic kidney disease: -Patient's elevated troponin may be secondary to renal function -Avoid nephrotoxins -Monitor renal function Diabetes mellitus: chronic -Holding home metformin/glipizide -Sliding-scale insulin -Monitor blood glucose Hypertension/hyperlipidemia: chronic -Continue Coreg, lisinopril, statin Renal cell carcinoma: chronic. S/p left nephrectomy -Continue daily Pazopanib DVT Prophylaxis: on Heparin drip
[2017-10-10] MEDS: Heparin Drip 25,000 UNIT/250 ML BAG IV.CONT PRN (16:48)
[2017-10-11] MEDS: Insulin NovoLOG Aspart Correctional Sugar Inj SQ SCH ×5 (04:37→22:38)
[2017-10-11] MEDS: Levothyroxine 100 MCG Tablet PO SCH (06:26)
[2017-10-11] MEDS: Sod Chloride 0.9% Inj 1,000 ML IV.CONT SCH ×4 (06:26→23:34)
[2017-10-11 06:42] LABS: Hematocrit 40.6 % (39.0-51.0); Hemoglobin 13.5 gm/dL (13.0-17.0); Mean Corpuscular HGB Conc 33.4 % (32.0-36.0); Mean Corpuscular Volume 92.8 fL (80.0-100.0); Platelet Count 244 th/mm3 (150-450); Red Blood Count 4.37 mil/mm3 (4.50-5.90); Red Cell Distribution Width 15.7 % (11.6-17.2); White Blood Count 5.7 th/mm3 (4.0-11.0)
[2017-10-11] MEDS: Lisinopril 5 MG Tablet PO SCH (09:50)
--- NOTE | 2017-10-11 10:41 | P.PN ---
Subjective Interval history: Follow-up unstable angina October 10, 2017-patient seen and examined, denies any chest pain or shortness of breath. by the bedside. October 11, 2017-patient seen and examined, stable and denies any chest pain. N.p.o. pending left heart catheterization this a.m. Physical Exam Vital signs: Vital Signs 10/10/17 11:00 10/10/17 12:00 10/10/17 13:00 Temperature 97.9 F Pulse Rate 62 74 66 Respiratory Rate 16 Blood Pressure 122/73 Pulse Oximetry 10/10/17 14:00 10/10/17 15:00 10/10/17 16:00 Temperature 98.0 F Pulse Rate 68 62 65 Respiratory Rate 16 Blood Pressure 121/76 Pulse Oximetry 98 10/10/17 17:00 10/10/17 18:00 10/10/17 19:00 Temperature Pulse Rate 68 70 71 Respiratory Rate Blood Pressure Pulse Oximetry 10/10/17 20:00 10/10/17 21:00 10/10/17 22:00 Temperature 98.6 F Pulse Rate 68 80 70 Respiratory Rate 16 Blood Pressure 141/81 H Pulse Oximetry 95 10/10/17 23:00 10/10/17 23:24 10/11/17 00:00 Temperature 97.8 F Pulse Rate 66 73 68 Respiratory Rate 18 Blood Pressure 124/78 Pulse Oximetry 94 L 10/11/17 01:00 10/11/17 02:00 10/11/17 03:00 Temperature Pulse Rate 70 66 68 Respiratory Rate Blood Pressure Pulse Oximetry 10/11/17 04:00 10/11/17 05:00 10/11/17 06:00 Temperature 97.9 F Pulse Rate 84 72 74 Respiratory Rate 18 Blood Pressure 130/82 Pulse Oximetry 94 L 10/11/17 07:50 Temperature 98.2 F Pulse Rate 84 Respiratory Rate 16 Blood Pressure 136/77 Pulse Oximetry 96 Intake & Output 10/10/17 10/11/17 10/11/17 18:59 06:59 18:59 Intake Total 1450 / 1450 240 / 240 Balance 1450 / 1450 240 / 240 Weight 96.2 kg Intake: IV 250 / 250 0 / 0 Heparin/D5W 25,000 U/250 mL 25, 250 / 250 000 unit In 250 ml @ Per Protocol IV.CONT TITRATE PRN Rx #:[id number] Aggrastat Inj 12,500 mcg In 250 0 / 0 ml @ Per Protocol IV.CONT .Q0M JS Rx#:[id number] Oral 1200 / 1200 240 / 240 Other: # Voids 3 1 Narrative: GENERAL: NAD. SKIN: Warm and dry. No rash. HEENT: Normocephalic. Atraumatic. Pupils equal and round. Mucous membranes pink and moist. CARDIOVASCULAR: Regular rate and rhythm. No murmur appreciated. RESPIRATORY: No accessory muscle use. Clear to auscultation. Breath sounds equal bilaterally. GASTROINTESTINAL: Abdomen soft, non-tender, nondistended. Normoactive bowel sounds x4. MUSCULOSKELETAL: No obvious deformities. Extremities without clubbing, cyanosis , or edema. NEUROLOGICAL: Awake and alert. No obvious cranial nerve deficits. Motor grossly within normal limits. Moving all extremities spontaneously. Normal speech. PSYCHIATRIC: Appropriate mood and affect; insight and judgment normal. Results - Labs CBC & Chem 7: 10/11/17 05:44 10/10/17 03:37 Laboratory Results - last 24 hr 10/10/17 10/10/17 10/10/17 12:03 16:46 21:32 WBC RBC Hgb Hct MCV MCH MCHC RDW Plt Count MPV APTT POC Glucose 135 H 134 H 207 H 10/11/17 10/11/17 10/11/17 05:44 05:44 05:50 WBC 5.7 RBC 4.37 L Hgb 13.5 Hct 40.6 MCV 92.8 MCH 31.0 MCHC 33.4 RDW 15.7 Plt Count 244 MPV 9.0 APTT 44.9 H POC Glucose 156 H 10/11/17 09:06 WBC RBC Hgb Hct MCV MCH MCHC RDW Plt Count MPV APTT POC Glucose 141 H Assessment and Plan - Plan 57-year-old man with Unstable angina -Continue Heparin drip, Aggrastat -Continue aspirin, nitro, BB, DEVAUGHN, statin, morphine prn, O2 prn -Plan for left heart catheterization today October 11, 2017 -Appreciate input from cardiology Chronic kidney disease: -Patient's elevated troponin may be secondary to renal function -Avoid nephrotoxins -Monitor renal function Diabetes mellitus: chronic -Holding home metformin/glipizide -Sliding-scale insulin -Monitor blood glucose Hypertension/hyperlipidemia: chronic -Continue Coreg, lisinopril, statin Renal cell carcinoma: chronic. S/p left nephrectomy -Continue daily Pazopanib DVT Prophylaxis: on Heparin drip
[2017-10-11] MEDS ORDERED: Heparin/NS PF Inj 1,000 ML ONE (11:49)
[2017-10-11] MEDS ORDERED: Heparin 10,000 UNITS/10 ML Vial (for IV use) ONE (11:50)
[2017-10-11] MEDS ORDERED: fentaNYL Citrate Inj 100 MCG/2 ML Ampul ONE (11:50)
--- NOTE | 2017-10-11 12:52 | CATHPROC ---
[facility] HIS Report Study Information Study Number Admission Scheduled Start Study Start [id number] Oct 09 2017 12:29AM 10/11/2017 Oct 11 2017 11:33AM [place] Service Electrophysiology Study Admit Source Facility Department Emergency department [facility] - Clinical Support Associate Physician and Clinical Staff Initial Meño Burrell Statistics Tutor Meir Martinez,KATHERINE Other cathlab, cathlab Recorder Vasu Valverde RCIS(BS) Scrub Yayo Escamilla RT(R) Procedures Performed Procedure Location (Site) Vessel Name Coronary Angiograms LCA Left Coronary Coronary Angiograms RCA Right Coronary L Heart Cath LV Gram-hand inj. LV LV Ventricle Wire insertion RCA Prox Right Coronary Equipment Time Business Analyst Intern Description Size Mfg Part Number Used/Scraped WIRE, WHISPER W/HYDROCOAT [id number] 12:34 [employer] 190CM Used 190CM *[id number] TRANSDUCER, TRUWAVE [id number] 11:47 BECKER CLAROS * Used W/STOCKCOCK *[id number] [id number] *[id number] *[id number] 534-618T *[id number] 534-620T *[id number] 534-642T *[id number] 534-650S *[id number] 11:47 MALLINCKRODT SYRINGE, ANGIOMAT 150ML 150ML *[id number] Used 2S MEDICAL CONCEPT DRAPE, RADIAL FEMORAL FULL 11:47 * [id number] *[id number] Used DEVELOPMENT BODY [id number] 11:47 Learn[employer] BLANKET,WARM AIR CCL * Used *[id number] 11:47 [employer] PACK, CCL CUSTOM * Used *[id number] 11:47 [employer] SUPPORT, ARTERIAL ADULT [id number] *[id number] Used [id number] 11:47 [employer]Zero PACER PEN, SKIN DUAL W/ RULER * Used *[id number] BAND, RADIAL COMPRESSION TR [id number] 12:43 [employer] 24CM Used SHORT 24 *[id number] SHEATH, FR6 RADIAL PRELUDE 11:47 [employer] FR 6 [id number] Used EASE 11CM [id number] 11:47 [employer] WIRE, EXCHANGE 260CM 3MMJ 260CM Used *[id number] 11:47 NAMIC MANIFOLD, 4 PORT * Used *[id number] 11:47 [employer]COMED OMNIPAQUE, 350 MG, 150ML 150ML [id number] Used CATHETER, FR5 OPTITORQUE [id number] 11:48 [facility] FR 5 Used RADIAL TIG 4.0 *[id number] History: Current Medications Medication Dosage/Unit Route Frequency Last Date/Time Taken Statins (any) ASA Beta Asif NTG SL History: Allergies Allergy Reaction No Known Allergies History: Risk Factors Family History of Hypertension Dyslipidemia Previous [place] Previous Heart Failure Premature CAD Yes Yes No No No Prior Valve Prior PCI Prior CABG Surgery No No No Cerebrovascular Peripheral Artery Chronic Lung On Dialysis Diabetes Diabetes Therapy Disease Disease Disease No No No No Yes Oral History: Symptoms/Diagnosis Selection Items Chest pain History: Stress Tests Stress or Imaging Studies Performed No History: Other Disease Selection Items HTN History: Other Current Smoker No Labs Hgb (g/dl) Hct (%) WBC (l/cumm) Platelets (thousands) 11.60-17.00 35.00-51.00 4.00-11.00 150.00-450.00 13.5 40.6 5.7 244 Glucose (mg/dl) BUN (mg/dl) Creatinine (mg/dl) BUN:Creatinine (1:x) 74.00-106.00 7.00-18.00 0.50-1.30 10.00-20.00 156 19 1.2 15.8 Na (meq/l) K (meq/l) 136.00-145.00 3.50-5.10 140 4.5 INR (PTT:PT) 0.90-1.10 1 Troponin I (ng/ml) CPK (u/l) CPK-MB (ng/ML) 0.02-0.05 26.00-308.00 0.50-3.60 0.05 101 Not Drawn Medication Medication Total Dose (Bolus/Oral) Medication Total Dosage/Unit 1% XYLOCAINE 2 mL FENTANYL 50 mcg HEPARIN 6700 units NITRO OINTMENT 2 inches RADIAL COCKTAIL 5 mL (Bolus) VERSED 2 mg Medications (Bolus/Oral) Medication Time Given Dosage/Unit Administered By Reason NITRO OINTMENT 10/11/2017 11:44:16 AM 2 inches Patient arrived on 2 inches NITRO OINTMENT via Topical. VERSED 10/11/2017 12:13:06 PM 2 mg Meir Martinez 2 mg VERSED given in lab by Meir Martinez RN in Left Antecubital via Peripheral IV. Ordered by Meño Quan. 1% XYLOCAINE 10/11/2017 12:13:14 PM 2 mL Meño Quan 2 mL 1% XYLOCAINE given in lab by Meño Quan in Right Radial via Subcutaneous. Ordered by Richard Quann. Ntg 200mcg Verapamil 2.5mg Heparin RADIAL COCKTAIL 10/11/2017 12:14:02 PM 5 mL (Bolus) Meño Quan 2500U 5 mL (Bolus) RADIAL COCKTAIL given in lab by Meño Quan in Right Radial via Radial. Using [Solution Name]. Reason: Ntg 200mcg Heparin 2500U. FENTANYL 10/11/2017 12:14:03 PM 50 mcg Meir Martinez 50 mcg FENTANYL given in lab by Meir Martinez RN in Left Antecubital via Peripheral IV. Ordered by Meño Bearden. HEPARIN 10/11/2017 12:35:09 PM 6700 units Meir Martinez 6700 units HEPARIN given in lab by Meir Martinez RN in Left Antecubital via Peripheral IV. Ordered by Meño Quan. Medication (Drip) Medication Time Given Dosage/Unit Concentration/Unit Diluent (ml) Solution IV Solutions 10/11/2017 11:43:12 AM 0 mL (IV) 500 NaCl .9 Patient arrived on IV Solutions given by Meir Martinez RN in Right Antecubital via Peripheral IV. Pum p/Drip Flow = 20 ml/hr using NaCl .9. Initial Case Assessment Cardiovascular HR Rhythm NIBP Chest Pain 60 NSR 147/86 0 Edema Present Skin color Skin None Normal Warm Dry Circulatory - Right Pulses Dorsalis Pedis Femoral Radial 3 3 2 Scale (0,1,2,3,4,d) Scale (0,1,2,3,4,d) Neurological State Oriented to time-place- Alert Moves all extremities person Respiration - General Respiration Rate SpO2 (%) (B/min) 15 96 Final Case Assessment Cardiovascular HR Rhythm NIBP Chest Pain 63 NSR 101/49 0 Edema Present Skin color Skin None Normal Warm Dry Circulatory - Right Pulses Dorsalis Pedis Femoral Radial 3 3 2 Scale (0,1,2,3,4,d) Scale (0,1,2,3,4,d) Neurological State Oriented to time-place- Alert Moves all extremities person Respiration - General Respiration Rate SpO2 (%) (B/min) 15 96 Chronological Log Time Study Chronological Log 11:42:52 Patient arrived via Bed. 11:42:53 Patient Name, D.O.B, / Armband Verified By R.N. 11:42:54 Consent signed by the physician and the patient and verified by the Clinical Support Associate staff. 11:42:54 Pre-op and post- op instructions given; patient acknowledges understanding of instructions. 11:42:56 Presedation assessment performed by Clinical Support Associate RN. 11:42:56 Allens test performed on the right radial and ulnar artery. POSITIVE. 11:43:02 Immediate Presedation assesment performed by physician. 11:43:03 Patient has been NPO for More than 6Hrs. 11:43:03 Skin Breakdown-none per patient 11:43:04 Patient Warmer Placed on the Table. 11:43:08 Niki Prominences Protected 11:43:10 A # 20 IV was noted in the Antecubital (left). Grade = 0 11:43:11 A # 20 IV was noted in the Antecubital (right). Grade = 0 Patient arrived on IV Solutions given by Meir Martinez RN in Right Antecubital via Peripheral I V. Pump/Drip Flow = 20 11:43:12 ml/hr using NaCl .9. 11:44:16 Patient arrived on 2 inches NITRO OINTMENT via Topical. 11:44:43 History and physical on the chart or being dictated. Vitals capture started with the following parameters, Patient=Adult, Interval=5 min, Initial Pr cxlisx=204 mmHg, 11:49:42 Deflation Rate=5 mmHg, Cuff placed on Right Arm Assessment: Initial Case, HR=60 BPM, Rhythm=NSR, UCPM=593/86 mmhg, Chest Pain=0, Edema=None, Color=Normal, Skin = Warm, Dry 11:49:43 Right Pulses: Levon Ped=3, Femoral=3, Radial=2 Neurological: State=Alert, Ox3, [place] Respiration: Resp=15 B/min, SpO2=96 % 11:50:21 HR=61 bpm, LYWS=873/86 mmhg, SpO2=96.0 %, Resp=15 B/min, Pain=0, Adelaida=10, Chaudhari=2 11:50:47 Reference ECG taken 11:55:20 HR=62 bpm, KXNZ=988/87 mmhg, SpO2=95.0 %, Resp=15 B/min, Pain=0, Adelaida=10, Chaudhari=2 12:00:19 HR=64 bpm, JEXT=184/83 mmhg, SpO2=95.0 %, Pain=0, Adelaida=10, Chaudhari=2 12:01:47 Right Radial and groin(s) prepped with 2% chlorhexidine, and draped after a 3 min. waiting time. 12:03:38 MD paged 12:05:20 HR=61 bpm, SHMK=750/86 mmhg, SpO2=94.0 %, Resp=15 B/min, Pain=0, Adelaida=10, Chaudhari=2 12:06:12 MD responded 12:06:24 Pressure channel 1 zeroed. 12:08:01 MD arrived. 12:08:04 Contrast Scanned 12:08:05 Immediate Presedation assesment performed by physician. 12:10:19 HR=68 bpm, FIFN=562/85 mmhg, SpO2=95.0 %, Resp=15 B/min, Pain=0, Adelaida=10, Chaudhari=2 Time Out. Correct patient, correct procedure, correct physician, labs, allergies, and equipment verified with dental laboratory technology teacher 12:13:04 team present. Fire risk assesment completed (see hard stop sheet for coding). Time Out Conc urred by MD and individual staff in procedure. 12:13:06 2 mg VERSED given in lab by Meir Martinez RN in Left Antecubital via Peripheral IV. Ordered by Meño Quan. 12:13:14 2 mL 1% XYLOCAINE given in lab by Meño Quan in Right Radial via Subcutaneous. Ordered by Meño Quan. 12:13:20 Case Start 12:13:44 Access site was Right Radial Artery . A SHEATH, FR6 RADIAL PRELUDE EASE 11CM FR 6 was advanced into the Radial (right) using the Perc utaneous 12:13:50 technique. 5 mL (Bolus) RADIAL COCKTAIL given in lab by Meño Quan in Right Radial via Radial. Using [So lution Name]. Reason: 12:14:02 Ntg 200mcg Heparin 2500U. 12:14:03 50 mcg FENTANYL given in lab by Meir Martinez, RN in Left Antecubital via Peripheral IV. Ord ered by Meño Quan. A CATHETER, FR5 OPTITORQUE RADIAL TIG 4.0 FR 5 was advanced over a wire. OMNIPAQUE, 350 MG, 150 ML 150ML 12:14:13 was used for injections. 12:15:20 HR=80 bpm, GPTS=426/67 mmhg, SpO2=91.0 %, Resp=14 B/min, Pain=0, Adelaida=10, Chaudhari=2 Recorded Pressure: Ao, HR=80, Condition=Condition 1 12:15:54 (Aorta) Ao 90/59/71 Recorded Pressure: LV, HR=84, Condition=Condition 1 12:16:30 (Left Ventricle) LV 95/-1/9 Recorded Pressure: LV, Ao, HR=83, Condition=Condition 1 12:16:42 (Left Ventricle) LV 82/3/7, (Aorta) Ao 86/61/71 12:17:23 The RCA was injected and visualized at various angles. OMNIPAQUE, 350 MG, 150ML 150ML used . After removing the current catheter a AL 1 INFINITI CATHETER FR 6 was advanced over a WIRE, EXC HANGE 260CM 12:18:16 3MMJ 260CM. 12:20:19 HR=81 bpm, LHFH=615/61 mmhg, SpO2=92 %, Pain=0, Adelaida=10, Chaudhari=2 After removing the current catheter a JL 3.5 INFINITI CATHETER FR 6 was advanced over a WIRE, E XCHANGE 260CM 12:22:33 3MMJ 260CM. After removing the current catheter a JL 4.0 INFINITI CATHETER FR 6 was advanced over a WIRE, E XCHANGE 260CM 12:24:09 3MMJ 260CM. 12:25:18 HR=66 bpm, NIBP=96/50 mmhg, SpO2=90.0 %, Resp=14 B/min, Pain=0, Adelaida=10, Chaudhari=2 12:25:51 The LCA was injected and visualized at various angles. OMNIPAQUE, 350 MG, 150ML 150ML used . After removing the current catheter a MPA-2 INFINITI CATHETER FR 6 was advanced over a WIRE, EX CHANGE 260CM 12:27:27 3MMJ 260CM. 12:30:15 HR=67 bpm, WNVS=681/60 mmhg, SpO2=89.0 %, Resp=15 B/min, Pain=0, Adelaida=10, Chaudhari=2 12:32:07 After removing the current catheter a catheter was advanced over a WIRE, EXCHANGE 260CM 3MM J 260CM. 12:34:02 A WIRE, WHISPER W/HYDROCOAT 190CM 190CM was inserted via RCA Prox. 12:35:09 6700 units HEPARIN given in lab by Meir Martinez, RN in Left Antecubital via Peripheral IV. Ordered by Meño Quan. 12:35:16 HR=64 bpm, YQVK=779/69 mmhg, SpO2=90 %, Resp=15 B/min, Pain=0, Adelaida=10, Chaudhari=2 12:36:52 Wire removed After removing the current catheter a PIGTAIL STR INFINITI CATHETER FR 6 was advanced over a WI RE, EXCHANGE 12:37:20 260CM 3MMJ 260CM. Recorded Pressure: LV, HR=62, Condition=Condition 1 12:39:33 (Left Ventricle) LV 80/-3/8 12:39:42 The LV was manually injected with 10 cc's and visualized. OMNIPAQUE, 350 MG, 150ML 150ML us ed. Recorded Pressure: LV, Ao, HR=63, Condition=Condition 1 12:40:19 (Left Ventricle) LV 88/18/18, (Aorta) Ao 84/57/70 12:40:21 HR=65 bpm, PGIF=852/49 mmhg, SpO2=91.0 %, Resp=15 B/min, Pain=0, Adelaida=10, Chaudhari=2 12:40:28 Catheter was removed 12:41:10 Case End (Physician broke scrub) Assessment: Final Case, HR=63 BPM, Rhythm=NSR, ERTV=022/49 mmhg, Chest Pain=0, Edema=None, [place] r=Normal, Skin = Warm, Dry 12:41:16 Right Pulses: Levon Ped=3, Femoral=3, Radial=2 Neurological: State=Alert, Ox3, [place] Respiration: Resp=15 B/min, SpO2=96 % 12:41:28 Catheter(s) removed without difficulty Radial Compression Device Used. 13 mLs of air placed in BAND, RADIAL COMPRESSION TR SHORT 24 24 CM. Affected 12:41:32 hand 92 % O2 saturation. 12:41:38 Sterile dressing applied to site 12:41:39 No case complications noted. 12:41:39 Cine recording checked. 12:41:41 Bedside Report will be given. 12:41:44 A Left Heart Cath was performed. 12:45:16 HR=64 bpm, AUGW=856/61 mmhg, SpO2=90.0 %, Resp=14 B/min, Pain=0, Adelaida=10, Chaudhari=2 12:49:53 Vitals capture stopped. 12:51:24 Patient moved to stretcher End Study - Contrast Media Used In Study Contrast Total Opened (mL) Total Used (mL) Total Wasted (mL) Omnipaque 110 110 0 End Study - Maximum Contrast Load Max Contrast Load (mL) 400.8 End Study - Radiation Exposure Fluoro Time (minutes) 11.8 End Study - Patient Disposition Complications Transferred To Interventional Outcome No Telemetry Bed unsuccessful
--- NOTE | 2017-10-11 13:12 | P.PNCA ---
Subjective Interval history: Denies CP, dyspnea, dizziness, palpitations. Physical Exam Vital signs: Vital Signs 10/10/17 14:00 10/10/17 15:00 10/10/17 16:00 Temperature 98.0 F Pulse Rate 68 62 65 Respiratory Rate 16 Blood Pressure 121/76 Pulse Oximetry 98 10/10/17 17:00 10/10/17 18:00 10/10/17 19:00 Temperature Pulse Rate 68 70 71 Respiratory Rate Blood Pressure Pulse Oximetry 10/10/17 20:00 10/10/17 21:00 10/10/17 22:00 Temperature 98.6 F Pulse Rate 68 80 70 Respiratory Rate 16 Blood Pressure 141/81 H Pulse Oximetry 95 10/10/17 23:00 10/10/17 23:24 10/11/17 00:00 Temperature 97.8 F Pulse Rate 66 73 68 Respiratory Rate 18 Blood Pressure 124/78 Pulse Oximetry 94 L 10/11/17 01:00 10/11/17 02:00 10/11/17 03:00 Temperature Pulse Rate 70 66 68 Respiratory Rate Blood Pressure Pulse Oximetry 10/11/17 04:00 10/11/17 05:00 10/11/17 06:00 Temperature 97.9 F Pulse Rate 84 72 74 Respiratory Rate 18 Blood Pressure 130/82 Pulse Oximetry 94 L 10/11/17 07:00 10/11/17 07:50 10/11/17 08:00 Temperature 98.2 F Pulse Rate 68 84 75 Respiratory Rate 16 Blood Pressure 136/77 Pulse Oximetry 96 10/11/17 09:00 10/11/17 10:00 10/11/17 11:00 Temperature Pulse Rate 68 78 68 Respiratory Rate Blood Pressure Pulse Oximetry Intake & Output 10/10/17 10/11/17 10/11/17 18:59 06:59 18:59 Intake Total 1450 / 1450 240 / 240 10 / 10 Balance 1450 / 1450 240 / 240 10 / 10 Weight 96.2 kg Intake: IV 250 / 250 0 / 0 10 / 10 Heparin/NS PF Inj 1,000 ML @ 0 10 / 10 mls/hr .ROUTE .STK-MED ONE Rx#: [id number] Heparin/D5W 25,000 U/250 mL 25, 250 / 250 000 unit In 250 ml @ Per Protocol IV.CONT TITRATE PRN Rx #:[id number] Aggrastat Inj 12,500 mcg In 250 0 / 0 ml @ Per Protocol IV.CONT .Q0M JS Rx#:[id number] Oral 1200 / 1200 240 / 240 Other: # Voids 3 1 - Constitutional no acute distress - Routine Neck Exam Absent: JVD - Routine Respiratory Exam Present: CTA bilaterally - Routine Cardiovascular Exam Present: RRR, S1, S2. Absent: murmur, gallop - Routine Abdominal Exam Present: soft, normoactive bowel sounds. Absent: tenderness, organomegaly - Routine Extremities Exam Absent: cyanosis, clubbing, edema Assessment and Plan - Assessment (1) Unstable angina Code(s): I20.0 - Unstable angina Status: Acute Plan: Stable since admission. Cath today shows total occlusion of proximal RCA, likely more chronic in nature, unable to cross with wire. To treat medically, including residual severe disease in small caliber diagonal and obtuse marginal. OK to discharge late today, same home medications plus Imdur 60 mg qd , 3-4 week f/u with me. (2) Hypertension Code(s): I10 - Essential (primary) hypertension Status: Chronic Plan: Stable. Normotensive. (3) Hyperlipidemia Code(s): E78.5 - Hyperlipidemia, unspecified Status: Chronic Plan: Continues on statin therapy. Check lipid panel as outpatient - Plan Code Status: full code Discussed Condition With: patient and (2) Hypertension Qualifiers: Hypertension type: essential hypertension Qualified Code(s): I10 - Essential (primary) hypertension (3) Hyperlipidemia Qualifiers: Hyperlipidemia type: mixed hyperlipidemia Qualified Code(s): E78.2 - Mixed hyperlipidemia
--- NOTE | 2017-10-11 13:30 | MA ---
cc: Meño Quan MD DATE: 10/11/2017 PROCEDURE: Left heart catheterization, selective coronary angiography, left ventriculography, unsuccessful percutaneous coronary intervention attempt on the proximal right coronary. PROCEDURE NOTE: The patient was brought to the cardiac catheterization laboratory in a fasting state after having signed informed consent. The right radial region was prepped and draped as per policy and anesthetized with 1% lidocaine. Arterial access was obtained via the right radial artery and a 6-Czech sheath placed. Coronary arteriography was performed using 6-Czech [place] to engage the right coronary and 6-Czech [place] left 4.0 to engage the left main. Left ventriculography was done using a standard 6-Czech pigtail. Attempted percutaneous intervention was done as described below. There were no apparent, immediate complications. HEMODYNAMIC DATA: Left ventricle 88 with an end diastolic pressure of 17, aorta 84/57 with a mean of 70. There was no significant transvalvular aortic gradient on pullback of the pigtail catheter. CORONARY ARTERIOGRAPHY: The left main has minimal luminal irregularities. The left anterior descending is a medium-sized vessel giving rise to a medium size first diagonal and very small second diagonal. In the distal third of the proximal LAD, there is somewhat eccentric, up to 50% stenosis. The mid to distal LAD has minimal luminal irregularities. The first diagonal has diffuse proximal disease resulting in up to 85% stenosis. The second diagonal, which is very small in caliber, has diffuse 60% ostial to proximal disease. The circumflex is a medium-sized vessel giving rise to medium size first obtuse marginal, tiny second obtuse marginal and small third obtuse marginal. The third obtuse marginal has somewhat eccentric, up to 80% ostial stenosis. The first and second obtuse marginals have minimal disease. There is a medium sized early branching ramus intermedius. The proximal portions of both branches appear to have up to 40% proximal stenosis. The right coronary artery is totally occluded proximally. There are fair to good left to right collaterals. LEFT VENTRICULOGRAPHY: Contrast injection of the left ventricle reveals no segmental wall motion abnormalities. Ejection fraction is estimated at 60%. PERCUTANEOUS CORONARY INTERVENTION ATTEMPT: Heparin, 70 units/kg was infused. Using a 6-Czech hockey stick guiding catheter with side holes, the ostium of the right coronary artery was reengaged. We attempted to cross the total occlusion with a Whisper wire. It was evident that the lesion was very hard and likely chronic. The procedure was aborted. CONCLUSIONS: 1. Moderate to severe 3-vessel coronary artery disease. 2. Right dominant system. 3. Totally occluded proximal right coronary artery with fair to good left to right collaterals. 4. Normal left ventricular function with estimated ejection fraction of 60%. 5. Status post unsuccessful percutaneous coronary intervention attempt on the right coronary due to inability to wire the total occlusion. DISCUSSION: The patient will be treated medically at this time for his coronary disease. In the future should the patient have continued angina, consideration could be made towards coronary artery bypass grafting with bypass grafts to the diagonal, LAD, right coronary. Alternatively, stenting of the proximal diagonal could be considered as well. MD FIGUEROA Vicente/christine , 12:53 PM , 01:01 PM JORDAN
[2017-10-11] MEDS: Acetaminophen 325 MG Tablet PO PRN (23:23)
[2017-10-12] MEDS: Insulin NovoLOG Aspart Correctional Sugar Inj SQ SCH ×2 (03:53→10:53)
[2017-10-12] MEDS: Acetaminophen 325 MG Tablet PO PRN (03:53)
[2017-10-12] MEDS: Levothyroxine 100 MCG Tablet PO SCH (06:22)
[2017-10-12] MEDS ORDERED: Isosorbide Mononitrate 60 MG ER 24HR Tablet (Imdur) PO SCH (07:00)
[2017-10-12] MEDS: Lisinopril 5 MG Tablet PO SCH (09:24)
--- NOTE | 2017-10-12 09:38 | P.PN ---
Subjective Interval history: Follow-up unstable angina October 10, 2017-patient seen and examined, denies any chest pain or shortness of breath. by the bedside. October 11, 2017-patient seen and examined, stable and denies any chest pain. N.p.o. pending left heart catheterization this a.m. October 12, 2017-patient seen and examined, status post left heart catheterization yesterday. Currently denies any chest pain Physical Exam Vital signs: Vital Signs 10/11/17 10:00 10/11/17 11:00 10/11/17 13:00 Temperature Pulse Rate 78 68 60 Respiratory Rate Blood Pressure Pulse Oximetry 10/11/17 13:06 10/11/17 14:00 10/11/17 15:00 Temperature 97.7 F Pulse Rate 60 60 77 Respiratory Rate 14 Blood Pressure 120/76 Pulse Oximetry 96 10/11/17 15:21 10/11/17 16:00 10/11/17 17:00 Temperature 97.7 F Pulse Rate 72 72 72 Respiratory Rate 16 16 Blood Pressure 111/72 111/72 Pulse Oximetry 96 96 10/11/17 18:00 10/11/17 19:00 10/11/17 20:00 Temperature Pulse Rate 78 72 60 Respiratory Rate Blood Pressure Pulse Oximetry 10/11/17 21:00 10/11/17 22:00 10/11/17 23:00 Temperature Pulse Rate 74 68 72 Respiratory Rate Blood Pressure Pulse Oximetry 10/12/17 00:00 10/12/17 00:34 10/12/17 01:00 Temperature 97.2 F L Pulse Rate 62 64 Respiratory Rate 18 20 Blood Pressure 123/81 Pulse Oximetry 97 10/12/17 02:00 10/12/17 03:00 10/12/17 04:00 Temperature 97.6 F Pulse Rate 66 61 62 Respiratory Rate 18 Blood Pressure 122/75 Pulse Oximetry 96 10/12/17 05:00 10/12/17 06:00 10/12/17 07:00 Temperature Pulse Rate 62 66 80 Respiratory Rate Blood Pressure Pulse Oximetry Intake & Output 10/11/17 10/12/17 10/12/17 18:59 06:59 18:59 Intake Total 490 / 490 1969 Output Total 500 / 500 Balance -1969 Weight 96.2 kg Intake: IV 1250 / 1250 Heparin/NS PF Inj 1,000 ML @ 0 10 / 10 mls/hr .ROUTE .STK-MED ONE Rx#: [id number] NS Inj 1,000 ML @ 100 mls/hr IV 1000 / 1000 .CONT .Q10H [facility] Rx#:[id number] Oral 480 / 480 720 / 720 Output: Urine 500 / 500 Other: # Voids 3 Narrative: GENERAL: NAD. SKIN: Warm and dry. No rash. HEENT: Normocephalic. Atraumatic. Pupils equal and round. Mucous membranes pink and moist. CARDIOVASCULAR: Regular rate and rhythm. No murmur appreciated. RESPIRATORY: No accessory muscle use. Clear to auscultation. Breath sounds equal bilaterally. GASTROINTESTINAL: Abdomen soft, non-tender, nondistended. Normoactive bowel sounds x4. MUSCULOSKELETAL: No obvious deformities. Extremities without clubbing, cyanosis , or edema. NEUROLOGICAL: Awake and alert. No obvious cranial nerve deficits. Motor grossly within normal limits. Moving all extremities spontaneously. Normal speech. PSYCHIATRIC: Appropriate mood and affect; insight and judgment normal. Results - Labs CBC & Chem 7: 10/11/17 05:44 10/10/17 03:37 Laboratory Results - last 24 hr 10/11/17 10/11/17 10/12/17 13:52 22:37 03:45 POC Glucose 115 H 133 H 159 H 10/12/17 08:04 POC Glucose 142 H - Procedures [facility] 10/11/17 Assessment and Plan - Plan 57-year-old man with Unstable angina -Continue Heparin drip, Aggrastat -Continue aspirin, nitro, BB, DEVAUGHN, statin,Imdur 60mg daily, morphine prn, O2 prn -s/p left heart catheterization October 11, 2017 with finding of moderate 3VD -Appreciate input from cardiology Chronic kidney disease: -Patient's elevated troponin may be secondary to renal function -Avoid nephrotoxins -Monitor renal function Diabetes mellitus: chronic -Holding home metformin/glipizide -Sliding-scale insulin -Monitor blood glucose Hypertension/hyperlipidemia: chronic -Continue Coreg, lisinopril, statin Renal cell carcinoma: chronic. S/p left nephrectomy -Continue daily Pazopanib DVT Prophylaxis: on Heparin drip
--- NOTE | 2017-10-12 09:40 | P.DS ---
Date of admission: 10/09/17 00:29 Primary care physician: Daniel Moses MD Anticipated date of discharge: 10/12/17 Brief History from admission: 57-year-old male with past medical history significant for diabetes, coronary artery disease, hypertension, hyperlipidemia, stage IV renal cell cancer and hypothyroidism presents to the emergency department for evaluation of chest pain. The patient reports that his pain has been intermittent for the past week. He states it was worse yesterday and he described it as a nonradiating pressure in the center and left side of his chest. He endorses accompanying nausea, shortness of breath and worsening dyspnea on exertion. He denies any fever/chills. No lateralizing signs/symptoms. DS: Medications - Discharge Medications Prescriptions: isosorbide mononitrate 60 mg PO DAILY@0700 #30 tab DS: Summary Hospital Course: While in hospital, patient was treated for: Unstable angina -Treated with heparin drip, Aggrastat -Treated with aspirin, nitro, BB, DEVAUGHN, statin,Imdur 60mg daily, morphine prn , O2 prn -s/p left heart catheterization October 11, 2017 with finding of moderate 3VD -Appreciate input from cardiology Chronic kidney disease: -Patient's elevated troponin may be secondary to renal function -Avoid nephrotoxins -Monitor renal function Diabetes mellitus: chronic -Resume home metformin/glipizide upon discharge -Sliding-scale insulin -Monitor blood glucose Hypertension/hyperlipidemia: chronic -Treated with Coreg, lisinopril, statin Renal cell carcinoma: chronic. S/p left nephrectomy -Treated with daily Pazopanib DVT Prophylaxis: on Heparin drip - Time Spent with Patient Total time spent providing and/or coordinating discharge services: Less than 30 minutes - Quality: VTE Deep Vein Thrombosis/Pulmonary Embolism Present on Admission: No Exam Vital signs: Vital Signs 10/11/17 10:00 10/11/17 11:00 10/11/17 13:00 Temperature Pulse Rate 78 68 60 Respiratory Rate Blood Pressure Pulse Oximetry 10/11/17 13:06 10/11/17 14:00 10/11/17 15:00 Temperature 97.7 F Pulse Rate 60 60 77 Respiratory Rate 14 Blood Pressure 120/76 Pulse Oximetry 96 10/11/17 15:21 10/11/17 16:00 10/11/17 17:00 Temperature 97.7 F Pulse Rate 72 72 72 Respiratory Rate 16 16 Blood Pressure 111/72 111/72 Pulse Oximetry 96 96 10/11/17 18:00 10/11/17 19:00 10/11/17 20:00 Temperature Pulse Rate 78 72 60 Respiratory Rate Blood Pressure Pulse Oximetry 10/11/17 21:00 10/11/17 22:00 10/11/17 23:00 Temperature Pulse Rate 74 68 72 Respiratory Rate Blood Pressure Pulse Oximetry 10/12/17 00:00 10/12/17 00:34 10/12/17 01:00 Temperature 97.2 F L Pulse Rate 62 64 Respiratory Rate 18 20 Blood Pressure 123/81 Pulse Oximetry 97 10/12/17 02:00 10/12/17 03:00 10/12/17 04:00 Temperature 97.6 F Pulse Rate 66 61 62 Respiratory Rate 18 Blood Pressure 122/75 Pulse Oximetry 96 10/12/17 05:00 10/12/17 06:00 10/12/17 07:00 Temperature Pulse Rate 62 66 80 Respiratory Rate Blood Pressure Pulse Oximetry Intake & Output 10/11/17 10/12/17 10/12/17 18:59 06:59 18:59 Intake Total 490 / 490 1969 Output Total 500 / 500 Balance -10 / -10 1969 Weight 96.2 kg Intake: IV 1250 / 1250 Heparin/NS PF Inj 1,000 ML @ 0 10 / 10 mls/hr .ROUTE .STK-MED ONE Rx#: [id number] NS Inj 1,000 ML @ 100 mls/hr IV 1000 / 1000 .CONT .Q10H [facility] Rx#:[id number] Oral 480 / 480 720 / 720 Output: Urine 500 / 500 Other: # Voids 3 Narrative: GENERAL: NAD SKIN: Warm and dry. HEAD: Normocephalic. EYES: No scleral icterus. No injection or drainage. NECK: Supple, trachea midline. No JVD or lymphadenopathy. CARDIOVASCULAR: Regular rate and rhythm without murmurs, gallops, or rubs. RESPIRATORY: Breath sounds equal bilaterally. No accessory muscle use. GASTROINTESTINAL: Abdomen soft, non-tender, nondistended. MUSCULOSKELETAL: No cyanosis, or edema. BACK: Nontender without obvious deformity. No CVA tenderness. Results Procedures completed during hospitalization: [facility] 10/11/17 Labs on day of discharge: Labs from last 24 hours 10/12/17 10/12/17 10/11/17 08:04 03:45 22:37 POC Glucose 142 H 159 H 133 H 10/11/17 13:52 POC Glucose 115 H - Impressions ITS Impressions Chest X-Ray 10/08/17 17:53 CONCLUSION: No acute cardiopulmonary disease. Discharge Plan - Discharge Disposition Patient Disposition: 01 Discharge Home - Discharge Condition Condition: Stable - Discharge Order Discharge Orders: Discharge Order (Routine); Ordered 10/12/17 Ordered By: Rodolfo Escobar Cardiology Clear for Discharge (Routine); Ordered 10/11/17 Ordered By: Meño Quan - Physicians Team Primary Care Provider: Daniel Moses Attending Provider: Rodolfo Escobar Other Providers: Josué Roberts MD
[2017-10-12] MEDS: Sod Chloride 0.9% Inj 1,000 ML IV.CONT SCH (10:55)
== END 2017-10-12 09:43 | disposition home or self-care (01) ==
LOC: NEPD 17:38 → NEDA 17:38 → NEPFCDU 10-09 00:21 → HCIS 10-09 12:41
PROVIDERS: ADMIT Hospitalist; ATTEND Hospitalist